=== PATIENT | female | born 1965 | race Caucasian/White ===

== ENCOUNTER → 2017-09-13 | Day surgery (SDC) | payer BC, OTHER ==
[2017-09-09 13:52] VITALS: Ht 157.5 cm; Wt 94.1 kg
[~2017-09-13] VITALS: Ht 157.5 cm; Wt 94.1 kg
[~2017-09-13] MED LIST: ATROPINE SULFATE 0.1 MG/ML 5ML SYR IV PRN; CETI10TA10 PO; DIPH25CA65 PO; EpHEDrine SULFATE INJ 50 MG/ML AMP IV PRN; LEVO75TA5 PO; LIDOCAINE HCL 2% 2 ML VIAL (20MG/ML) ONE; MIDAZOLAM HCL 1 MG/ML 2ML VIAL ONE; PROPOFOL IV EMULSION 10 MG/ML 20 ML VIAL IV ONE
--- NOTE | 2017-09-13 11:26 | Endo History and Physical ---
History & Physical Date of Service: Sep 13, 2017. Chief Complaint: Rectal pain, rectal bleeding Referring Physician: Roldan History of Present Illness 52 yo CF who presents for colonoscopy secondary to rectal pain and bleeding. Past Surgical History Hx Cardiac Surgery: No Hx Internal Defibrillator: No Hx Pacemaker: No Hx Abdominal Surgery: Yes (RUMA WITH LASER BOWEL AND BLADDER, UTERINE FIBROIDS, LEFT OOPHERECTOMY) Hx of Implantable Prosthesis: No Hx Post-Op Nausea and Vomiting: No Hx Cancer Surgery: No Hx Thoracic Surgery: No Hx Orthopedic: No Hx Urinary Tract Surgery: No Family History Colon CA Social History Smoking Status: Former Smoker Hx Substance Use: No Hx Alcohol Use: Yes (OCCASIONALLY) Allergies Coded Allergies: [place] (Verified Allergy, Intermediate, HIVES, 09/09/17) Rofecoxib (Verified Allergy, Intermediate, RASH, 09/09/17) Ibuprofen (Verified Allergy, Unknown, JOINT PAIN, 09/09/17) Penicillins (Verified Allergy, Unknown, ANGIOEDEMA, 09/09/17) Tetracycline (Verified Allergy, Unknown, GI UPSET, 09/09/17) Current Medications Reported Home Medications Medications Dose Route/Sig Max Daily Dose Days Date Category Benadryl Allergy (Diphenhydramine Hcl) 25 Mg Cap 1 Cap PO 8H PRN 30 09/09/17 Reported Levothyroxine Sodium 75 Mcg Tab 1 Tab PO QAM 90 09/09/17 Reported Zyrtec (Cetirizine Hcl) 10 Mg Tab 10 Mg PO DAILY 09/09/17 Reported Vital Signs Weight (Kilograms): 94.09 Height (Feet): 5 Height (Inches): 2 Date Time Temp Pulse Resp B/P (MAP) Pulse Ox O2 Delivery O2 Flow Rate FiO2 09/13/17 11:16 36.4 79 18 161/71 (101) 98 Room Air Physical Exam General Appearance: WD/WN, no apparent distress Respiratory/Chest: Auscultation: breath sounds normal Cardiovascular: Heart Auscultation: RRR Abdomen: Bowel Sounds: normal Inspection & Palpation: soft, non-distended, no tenderness, guarding & rebound Assessment and Plan Assessment: 52 yo CF who presents for colonoscopy secondary to rectal pain and bleeding. Plan: Proceed with colonoscopy.
--- NOTE | 2017-09-13 11:51 | GI REPORT ---
Procedure Date: 09/13/2017 11:07 AM Procedure: Colonoscopy Indications: Rectal bleeding, Rectal pain Medicines: Monitored Anesthesia Care Complications: No immediate complications. Estimated Blood Loss: Estimated blood loss: none. Procedure: Pre-Anesthesia Assessment: - Prior to the procedure, a History and Physical was performed, and patient medications and allergies were reviewed. The patient's tolerance of previous anesthesia was also reviewed. The risks and benefits of the procedure and the sedation options and risks were discussed with the patient. All questions were answered, and informed consent was obtained. Prior Anticoagulants: The patient has taken no previous anticoagulant or antiplatelet agents. ASA Grade Assessment: II - A patient with mild systemic disease. After reviewing the risks and benefits, the patient was deemed in satisfactory condition to undergo the procedure. After I obtained informed consent, the scope was passed under direct vision. Throughout the procedure, the patient's blood pressure, pulse, and oxygen saturations were monitored continuously. The scope was introduced through the anus and advanced to the terminal ileum. The colonoscopy was performed without difficulty. The patient tolerated the procedure well. The quality of the bowel preparation was good. The terminal ileum, ileocecal valve, appendiceal orifice, and rectum were photographed. Findings: Non-bleeding internal hemorrhoids were found during retroflexion. The hemorrhoids were small. Impression: - Non-bleeding internal hemorrhoids. - No specimens collected. Recommendation: - Resume previous diet. - Continue present medications. - Repeat colonoscopy in 10 years for surveillance. - Return to primary care physician as previously scheduled. Maxi Harvey DO 09/13/2017 11:51:06 AM This report has been signed electronically. Note Initiated On: 09/13/2017 11:07 AM I attest to the content of the Intraoperative Record and orders documented therein, exceptions below
--- NOTE | 2017-09-13 11:52 | Discharge Instructions ---
Endoscopy Patient Instructions Date / Procedure(s) Performed Sep 13, 2017. Colonoscopy Allergy Information Coded Allergies: [place] (Verified Allergy, Intermediate, HIVES, 09/13/17) Rofecoxib (Verified Allergy, Intermediate, RASH, 09/13/17) Ibuprofen (Verified Allergy, Unknown, JOINT PAIN, 09/13/17) Penicillins (Verified Allergy, Unknown, ANGIOEDEMA, 09/13/17) Tetracycline (Verified Allergy, Unknown, GI UPSET, 09/13/17) Discharge Date / Findings Sep 13, 2017. Internal hemorrhoids Medication Instructions OK to resume all medications today as prescribed Reported Home Medications Medications Dose Route/Sig Max Daily Dose Days Date Category Benadryl Allergy (Diphenhydramine Hcl) 25 Mg Cap 1 Cap PO 8H PRN 30 09/09/17 Reported Levothyroxine Sodium 75 Mcg Tab 1 Tab PO QAM 90 09/09/17 Reported Zyrtec (Cetirizine Hcl) 10 Mg Tab 10 Mg PO DAILY 09/09/17 Reported Provider Instructions Activity Restrictions - No exercising or heavy lifting for 24 hours. - Do not drink alcohol the day of the procedure. - Do not drive a car or operate machinery until the day after the procedure. - Do not make any important decisions or sign important papers in 24 hours after the procedure. Following Day: - Return to full activity which may include returning to work/school. Diet Start your diet with liquids and light foods (jello, soup, juice, toast). Then eat your usual diet if not nauseated. Treatment For Common After Affects For mild abdominal pain, bloating, or excessive gas: - Rest - Eat lightly - Lie on right side Follow-Up Information Follow-up with Roldan as scheduled Anesthesia Information What You Should Know You have had a procedure that required some medicine to reduce anxiety and discomfort. This treatment is called moderate sedation. After receiving the treatment, you may be sleepy, but you will be able to breathe on your own. The effects of the treatment may last for several hours. Follow these instructions along with Activity/Diet recommendations noted above: * Do NOT do anything where dizziness or clumsiness would be dangerous. * Rest quietly at home today, then you can be up and about tomorrow. * Have a responsible person stay with you the rest of today. * You may have had an I.V. today. If so, you may take the dressing off later today. Recommendations Call your doctor if: * Trouble breathing * Continuous vomiting for more than 24 hours * Temperature above 101 degrees * Severe abdominal pain or bloating * Pain not relieved by pain medicine ordered * There is increased drainage or redness from any incision * A large amount of rectal bleeding greater than 2-3 tablespoons. (If you had a polyp/s removed or have hemorrhoids, a small amount of blood - from the rectum is to be expected.) * You have any unanswered questions or concerns. IN THE EVENT OF A SERIOUS EMERGENCY, GO TO THE NEAREST EMERGENCY ROOM Your discharge instructions were prepared by provider Maxi Harvey. Patient Instructions Signature Page Salo Aquino Patient (or Guardian) Signature/Date: I have read and understand the instructions given to me by my caregivers. Caregiver/RN/Doctor Signature/Date: The above-named patient and/or guardian has received patient instructions on this date. + Original Patient Signature Page (only) stays with chart. Please make copy for patient.
--- NOTE | 2017-09-13 11:57 | Anesthesiology Progress Note ---
Anesthesia Post Op Note Date & Time Sep 13, 2017 at 11:57 Vital Signs Pain Intensity: 5 Vital Signs Past 12 Hours Date Time Temp Pulse Resp B/P (MAP) Pulse Ox O2 Delivery O2 Flow Rate FiO2 09/13/17 11:16 36.4 79 18 161/71 (101) 98 Room Air Notes Mental Status: alert / awake / arousable, participated in evaluation Pt Amnestic to Procedure: Yes Nausea / Vomiting: adequately controlled Pain: adequately controlled Airway Patency, RR, SpO2: stable & adequate BP & HR: stable & adequate Hydration State: stable & adequate Anesthetic Complications: no major complications apparent
[2017-09-13 12:22] VITALS: BP 112/70; PULSE 69; O2SAT 97
== END | disposition home or self-care (01) ==
LOC: C.GI 10:57
PROVIDERS: ATTEND Internal Medicine
DX: K64.8 Other hemorrhoids (principal); K62.5 Hemorrhage of anus and rectum; K62.89 Other specified diseases of anus and rectum; Z80.0 Family history of malignant neoplasm of digestive organs; Z87.891 Personal history of nicotine dependence

== ENCOUNTER → 2018-01-17 | Outpatient (CLI) | payer OTHER ==
[~2018-01-17] MED LIST changes: -ATROPINE SULFATE 0.1 MG/ML 5ML SYR IV PRN; -EpHEDrine SULFATE INJ 50 MG/ML AMP IV PRN; -LIDOCAINE HCL 2% 2 ML VIAL (20MG/ML) ONE; -MIDAZOLAM HCL 1 MG/ML 2ML VIAL ONE; -PROPOFOL IV EMULSION 10 MG/ML 20 ML VIAL IV ONE
--- NOTE | 2018-01-18 15:16 | MAMMOGRAPHY REPORT ---
BILATERAL DIGITAL SCREENING MAMMOGRAM TOMOSYNTHESIS WITH CAD: 01/17/2018 CLINICAL HISTORY: Routine screening. Patient has no complaints. TECHNIQUE: Breast tomosynthesis in addition to standard 2D mammography was performed. Current study was also evaluated with a Computer Aided Detection (CAD) system. COMPARISON: Comparison is made to exam dated: 06/14/2014 mammogram - [facility]. BREAST COMPOSITION: There are scattered areas of fibroglandular density in both breasts. Mild invol utional changes comparing to prior available mammograms. FINDINGS: No suspicious mass, architectural distortion or cluster of microcalcifications is seen. IMPRESSION: ACR BI-RADS CATEGORY 1: NEGATIVE There is no mammographic evidence of malignancy. A 1 year screening mammogram is recommended. The pa tient will receive written notification of the results. Approximately 10% of breast cancers are not detected with mammography. A negative mammographic report should not delay biopsy if a clinically suggestive mass is present. Nikkie Cavanaugh M.D. ay/:01/17/2018 16:10:28 Finance Professional: Alba LIM(Sadie)(Aneta)(BD), [facility] letter sent: Normal 1/2 BI-RADS Code: ACR BI-RADS Category 1: Negative
== END | disposition home or self-care (01) ==
LOC: C.MAMM 10:45
PROVIDERS: ATTEND Obstetrics & Gynecology
DX: Z12.31 Encounter for screening mammogram for malignant neoplasm of breast (principal)